=== PATIENT | male | born 1985 | race Caucasian/White ===

== ENCOUNTER 2018-02-25 05:37 | Emergency (ER) | payer MEDICAID ==
[~2018-02-25] VITALS: Ht 177.8 cm; Wt 117.9 kg
[2018-02-25 05:43] VITALS: Ht 177.8 cm; Wt 117.9 kg
[2018-02-25] MEDS ORDERED: SEROQUEL XR300 MG PO (05:44)
[2018-02-25] MEDS ORDERED: NEURONTIN 300300 MG PO (05:44)
[2018-02-25] MEDS ORDERED: AMBIEN10 MG PO (05:45)
[2018-02-25] MEDS ORDERED: TRILEPTAL300 MG PO (05:45)
[2018-02-25 06:20] LABS: BASOPHILS 0.2 % (0-2); EOSINOPHILS 0.8 % (0-7); HEMATOCRIT 47.2 % (42.0-54.0); IMMATURE GRANULOCYTES 0.2 % (0-5); LYMPHOCYTES 14.1 % (15-50); MCH 30.9 pg (26.0-34.0); MCHC 33.9 g/dL (31.0-37.0); MCV 91.1 fL (80.0-100.0); MEAN PLATELET VOLUME 10.2 fL (7.4-10.4); MONOCYTES 10.5 % (2-11); NEUTROPHILS 74.2 % (40-80); PLATELET COUNT 221 10x3/uL (130-400); RBC 5.18 10x6/uL (4.20-6.10); RDW 12.8 % (11.5-14.5); WBC 12.1 10x3/uL (4.8-10.8)
[2018-02-25 06:26] LABS: APPEARANCE CLEAR (CLEAR); COLOR YELLOW (YELLOW)
[2018-02-25 06:27] LABS: BILIRUBIN NEGATIVE (NEGATIVE); EPITHELIAL CELLS NSEEN /hpf (0-5); GLUCOSE NEGATIVE (NEGATIVE); KETONE NEGATIVE (NEGATIVE); NITRITE NEGATIVE (NEGATIVE); PROTEIN NEGATIVE (NEGATIVE); RED CELLS - URINE NONE SEEN /hpf (0-5); UROBILINOGEN NORMAL (NORMAL); WHITE CELLS - URINE 0-5 /hpf (0-5)
[2018-02-25 06:29] LABS: UDS - AMPHET POSITIVE QUAL (NEGATIVE); UDS - BARB NEGATIVE QUAL (NEGATIVE); UDS - BENZO NEGATIVE QUAL (NEGATIVE); UDS - COCAINE NEGATIVE QUAL (NEGATIVE); UDS - OPIATE NEGATIVE QUAL (NEGATIVE); UDS - PCP NEGATIVE QUAL (NEGATIVE); UDS - THC NEGATIVE QUAL (NEGATIVE)
[2018-02-25 06:49] LABS: CALC OSMOLALITY 280 mosm/kg (275-300); CALCIUM 8.3 mg/dL (8.5-10.1); CARBON DIOXIDE 24.2 mmol/L (21.0-32.0); CHLORIDE - SERUM 106 mmol/L (98-107); CREATININE - SERUM 0.9 mg/dL (0.6-1.3); POTASSIUM - SERUM 4.1 mmol/L (3.5-5.1); SODIUM 141 mmol/L (136-145); THYROID STIMULATING HORMONE 0.73 uIU/mL (0.36-3.74); UREA NITROGEN 19 mg/dL (7-18); eGFR NON AFRICAN AMERICAN > 90 mL/min (90-120)
[2018-02-25 06:50] LABS: GLUCOSE 69 mg/dL (74-106)
[2018-02-25 13:02] VITALS: BP 131/87
== END 2018-02-25 13:04 ==
LOC: D.ER 05:37
PROVIDERS: Emergency Medicine
DX: R45.851 Suicidal ideations (principal); K02.9 Dental caries, unspecified; F32.9 Major depressive disorder, single episode, unspecified; F17.200 Nicotine dependence, unspecified, uncomplicated